=== PATIENT | female | born 1950 | race Caucasian/White ===

== ENCOUNTER → 2016-12-13 | Outpatient (CLI) | payer MEDICAID ==
--- NOTE | 2016-12-13 18:48 | DX ---
Right Wrist, Two Views History: Osteoarthritis, pain, M79.645, M79.644. Findings: First carpometacarpal joint severe joint space narrowing, endplate sclerosis, and circumfe rential osteophytes. No significant degenerative changes of the radiocarpal joint. No destructive o sseous lesions. No intercarpal degenerative changes. Impression: Severe osteoarthritis right 1st carpometacarpal joint.
--- NOTE | 2016-12-13 19:12 | DX ---
Left Second Finger, Three Views History: Arthritis pain, M79.645. Findings: Single view of the left hand and two additional views of the left 2nd finger are obtained . The left 2nd distal interphalangeal joint demonstrates moderate joint space narrowing, subchondra l sclerosis, and osteophytes consistent with moderate osteoarthritis. Similar joint space narrowing , subchondral sclerosis, and osteophytes in the 5th distal interphalangeal joint. Milder degenerati ve change is noted in the rest of the interphalangeal joints of the left hand on the AP view. Old l eft ulnar styloid fracture. Sclerotic changes of the triquetrum noted. Impression: 1. Moderate osteoarthritis left 2nd distal interphalangeal joint. 2. Moderate osteoarthritis left 5th distal interphalangeal joint.
== END ==
LOC: FIMAGING 17:36
PROVIDERS: ATTEND Family Medicine
DX: M19.042 Primary osteoarthritis, left hand (principal); M19.031 Primary osteoarthritis, right wrist

== ENCOUNTER → 2017-01-06 | Outpatient (CLI) | payer MEDICAID | LOC: BMCIMAGING 13:15 | PROVIDERS: ATTEND Internal Medicine Cardiovascular Disease | DX: R06.02 Shortness of breath (principal); R06.09 Other forms of dyspnea ==

== ENCOUNTER → 2017-02-15 | Outpatient (CLI) | payer MEDICAID | LOC: FIMAGING 15:26 | PROVIDERS: ATTEND Family Medicine | DX: M25.561 Pain in right knee (principal); M17.11 Unilateral primary osteoarthritis, right knee ==

== ENCOUNTER 2017-03-10 14:09 | Emergency (ER) | payer MEDICAID ==
--- NOTE | 2017-03-10 14:24 | EDPHY ---
H & P Stated Complaint: midsternal chest pain x 3 days, fatigue Time Seen by Provider: 03/10/17 14:15 HPI/ROS: CHIEF COMPLAINT: Chest pain HISTORY OF PRESENT ILLNESS: This is a 66-year-old female presenting to the emergency department ambulatory to exam room, complaining of a midsternal chest pain x3 days. Patient states chest pain started on Tuesday while having a stressful conversation with another individual. Patient states that Tuesday night that chest pain had worsened but over the past 2 days chest pain has decreased but increase in fatigue, has had intermittent radiation to neck but none today no shortness of breath. Patient spoke with her doctor's office through [facility] Sumit FALK, was told to come in for evaluation. Patient also reports that this could be a component of her anxiety REVIEW OF SYSTEMS: Constitutional: No fever, no chills. Fatigue Eyes: No discharge. ENT: No sore throat. Cardiovascular: Midsternal chest pain, no palpitations. Respiratory: No cough, no shortness of breath. Gastrointestinal: No abdominal pain, no vomiting. Genitourinary: No hematuria. Musculoskeletal: No back pain. Skin: No rashes. Neurological: Intermittent headache. Source: Patient, Old records - Personal History Current Tetanus/Diphtheria Vaccine: Unsure Current Tetanus Diphtheria and Acellular Pertussis (TDAP): Unsure - Medical/Surgical History Hx Asthma: No Hx Chronic Respiratory Disease: No Hx Diabetes: No Hx Cardiac Disease: Yes Hx Renal Disease: No Hx Cirrhosis: No Hx Alcoholism: No Hx HIV/AIDS: No Hx Splenectomy or Spleen Trauma: No Other PMH: OBSTRUCTIVE SLEEP APNEA- USES CPAP, APPY WITH PERITONITIS, C5-6-7- T1 FUSION, KNEE SURG, THYROID CYST REMOVAL 02/11,. pacer for dawna 09/2015 - Social History Smoking Status: Never smoked - Physical Exam Exam: General Appearance: Alert, no distress. Eyes: Pupils equal and round no pallor or injection. ENT, Mouth: Mucous membranes moist. Respiratory: There are no retractions, lungs are clear to auscultation. Cardiovascular: Regular rate and rhythm. Gastrointestinal: Abdomen is soft and nontender, no masses, bowel sounds normal. Neurological: No focal deficits ambulatory with steady gait Skin: Warm and dry, no rashes. Musculoskeletal: Neck is supple nontender. Extremities: symmetrical, full range of motion. Psychiatric: Patient is oriented X 3, there is no agitation. Constitutional: Initial Vital Signs Temperature (C) 36.4 C 03/10/17 14:13 Heart Rate 72 03/10/17 14:13 Respiratory Rate 16 03/10/17 14:13 Blood Pressure 119/74 03/10/17 14:13 O2 Sat (%) 95 03/10/17 14:13 O2 Delivery Mode Room Air Allergies/Adverse Reactions: cefazolin sodium [From Anc] Allergy (Verified 10/15/15 11:34) Swelling/neck,face,throat Penicillins Allergy (Verified 10/16/15 10:36) Rash Home Medications: Medication Instructions Recorded Minivelle 02/26/14 Nasonex 02/26/14 Progesterone 02/26/14 Aspirin 03/10/17 LORazepam [Ativan] 0.5 mg PO PRN PRN #5 tablet 03/10/17 Prozac 20 MG (*) 03/10/17 Medical Decision Making - Diagnostics EKG Interpretation: 12 lead EKG: Indication: Chest pain Impression: Sinus rhythm Imaging Results: Imaging Impressions Chest X-Ray 03/10/17 14:26 Impression: No acute abnormality or substantial change from 01/06/2017, when allowing for differences in radiographic technique. ED Course/Re-evaluation: Discussed the plan of care: EKG, chest x-ray, CBC, BMP, troponin 1610: Discussed all results with patient no acute findings. Patient states she feeling better, no chest pain no shortness of breath calm 1615: Spoke with Sumit FALK with [facility]. They will call patient tomorrow Tuesday to set up a follow-up appointment, Sumit also reported this can be a component and anxiety as the patient also stated 1630: Discussed all results with patient, follow-up with Sumit FALK. Discharge home---> stable, discussed discharge instructions Differential Diagnosis: Other differential diagnosis considered but not limited to CVA, pneumonia and STEMI - Data Points Laboratory Results: Laboratory Results 03/10/17 14:35 03/10/17 14:35 03/10/17 03/10/17 14:35 14:35 WBC 8.79 10^3/uL 10^3/uL (3.80-9.50) RBC 4.52 10^6/uL 10^6/uL (4.18-5.33) Hgb 13.9 g/dL g/dL (12.6-16.3) Hct 41.5 % % (38.0-47.0) MCV 91.8 fL fL (81.5-99.8) MCH 30.8 pg pg (27.9-34.1) MCHC 33.5 g/dL g/dL (32.4-36.7) RDW 13.6 % % (11.5-15.2) Plt Count 235 10^3/uL 10^3/uL (150-400) MPV 9.7 fL fL (8.7-11.7) Neut % (Auto) 53.2 % % (39.3-74.2) Lymph % (Auto) 35.9 % % (15.0-45.0) [place] % (Auto) 7.5 % % (4.5-13.0) Eos % (Auto) 2.4 % % (0.6-7.6) Baso % (Auto) 0.7 % % (0.3-1.7) Nucleat RBC Rel Count 0.0 % % (0.0-0.2) Absolute Neuts (auto) 4.67 10^3/uL 10^3/uL (1.70-6.50) Absolute Lymphs (auto) 3.16 10^3/uL H 10^3/uL (1.00-3.00) Absolute Monos (auto) 0.66 10^3/uL 10^3/uL (0.30-0.80) Absolute Eos (auto) 0.21 10^3/uL 10^3/uL (0.03-0.40) Absolute Basos (auto) 0.06 10^3/uL 10^3/uL (0.02-0.10) Absolute Nucleated RBC 0.00 10^3/uL 10^3/uL (0-0.01) Immature Gran % 0.3 % % (0.0-1.1) Immature Gran # 0.03 10^3/uL 10^3/uL (0.00-0.10) Sodium 139 mEq/L mEq/L (134-144) Potassium 4.2 mEq/L mEq/L (3.5-5.2) Chloride 108 mEq/L mEq/L (97-110) Carbon Dioxide 22 mEq/l mEq/l (22-31) Anion Gap 9 mEq/L mEq/L (8-16) BUN 19 mg/dL mg/dL (7-23) Creatinine 0.5 mg/dL L mg/dL (0.6-1.0) Estimated GFR > 60 Glucose 93 mg/dL mg/dL (70-100) Calcium 8.9 mg/dL mg/dL (8.5-10.4) Troponin I < 0.012 ng/mL ng/mL (0-0.034) Medications Given: Discontinued Medications Aspirin (Aspirin) 324 mg PO EDNOW ONE Stop: 03/10/17 14:35 Last Admin: 03/10/17 14:35 Dose: 324 mg Departure - Departure Disposition: Home, Routine, Self-Care Clinical Impression: Anxiety Chest pain Qualifiers: Chest pain type: unspecified Qualified Code(s): R07.9 - Chest pain, unspecified Condition: Good Instructions: Chest Pain (ED), Anxiety (ED) Additional Instructions: Discussed discharge instructions 1. I did speak with Sumit FALK with [facility] training specialist, he would call patient on Tuesday or Tuesday to set up a follow-up appoint with them 2. Also discussed with patient I would give her a few Ativan to help with anxiety, but it was important for her to have a follow-up appointment with Mariya Rivers and her PCP 3. Also discussed if at any point time chest pain reoccurs, increased pain radiating to neck and arm or shortness of breath come to the ER immediately Referrals: Matthew Kim DO [Primary Care Provider] - As per Instructions Aidan Zurita PA [Physician Track Rider] - As per Instructions Prescriptions: LORazepam [Ativan] 0.5 mg PO PRN PRN #5 tablet PRN Reason: Anxiety
--- NOTE | 2017-03-10 14:25 | CPEKG ---
Heart Rate: 55 RR Interval: 1091 P-R Interval: 164 QRSD Interval: 76 QT Interval: 424 QTC Interval: 406 P [place]: 78 QRS [place]: 59 T Wave [place]: 55 EKG Severity - NORMAL ECG - EKG Impression: SINUS RHYTHM Electronically Signed By: Milan Jimenez 11-Mar-2017 16:32:33
[2017-03-10] MEDS ORDERED: ASPIRIN 81 MG CHEWABLE TAB ONE (14:31)
[2017-03-10] MEDS ORDERED: ASPIRIN 81 MG CHEWABLE TAB PO ONE (14:34)
[2017-03-10 14:43] LABS: % IMMATURE GRANULYOCYTES 0.3 % (0.0-1.1); ABSOLUTE IMMATURE GRANULOCYTES 0.03 10^3/uL (0.00-0.10); ADD DIFF? NO; ADD MORPH? NO; ADD SCAN? NO; ATYPICAL LYMPHOCYTE FLAG 10 (0-99); FRAGMENT RBC FLAG 0 (0-99); HEMATOCRIT 41.5 % (38.0-47.0); HEMOGLOBIN 13.9 g/dL (12.6-16.3); LEFT SHIFT FLG 0 (0-99); LIPEMIA HEMOLYSIS FLAG 80 (0-99); MEAN CELL HEMOGLOBIN 30.8 pg (27.9-34.1); MEAN CELL HEMOGLOBIN CONCENTR. 33.5 g/dL (32.4-36.7); MEAN CELL VOLUME 91.8 fL (81.5-99.8); MEAN PLATELET VOLUME 9.7 fL (8.7-11.7); PLATELET CLUMPS FLAG 0 (0-99); PLATELET COUNT 235 10^3/uL (150-400); RED BLOOD CELL COUNT 4.52 10^6/uL (4.18-5.33); RED CELL DISTRIBUTION WIDTH 13.6 % (11.5-15.2)
[2017-03-10 15:01] LABS: ANION GAP 9 mEq/L (8-16); CALCIUM 8.9 mg/dL (8.5-10.4); CARBON DIOXIDE 22 mEq/l (22-31); CHLORIDE 108 mEq/L (97-110); CREATININE 0.5 mg/dL (0.6-1.0); GLOMERULAR FILTRATION RATE > 60; GLUCOSE 93 mg/dL (70-100); POTASSIUM 4.2 mEq/L (3.5-5.2); SODIUM 139 mEq/L (134-144)
[2017-03-10 15:13] LABS: TROPONIN I < 0.012 ng/mL (0-0.034)
[2017-03-10 16:57] VITALS: BP 122/60; PULSE 59; RESP 20; TEMP 98.1; O2SAT 95
== END 2017-03-10 16:53 | disposition home or self-care (01) ==
DX: F41.9 Anxiety disorder, unspecified (principal); Z79.82 Long term (current) use of aspirin

== ENCOUNTER → 2017-05-23 | Outpatient (CLI) | payer MEDICAID ==
[~2017-05-23] MED LIST: MIDAZOLAM 2 MG/2 ML VIAL ONE
== END ==
LOC: FIMAGING 14:59
PROVIDERS: ATTEND Family Medicine
DX: Z09 Encounter for follow-up examination after completed treatment for conditions other than malignant neoplasm (principal); Z98.1 Arthrodesis status
CPT/HCPCS: J2250

== ENCOUNTER → 2017-09-12 | Outpatient (CLI) | payer MEDICAID, OTHER | LOC: BRMIMAGING 14:32 | PROVIDERS: ATTEND Family Medicine | DX: Z12.31 Encounter for screening mammogram for malignant neoplasm of breast (principal) | CPT/HCPCS: G0202 ==

== ENCOUNTER → 2017-09-21 | Outpatient (CLI) | payer OTHER | LOC: BRMIMAGING 14:43 | PROVIDERS: ATTEND Family Medicine | DX: Z13.820 Encounter for screening for osteoporosis (principal); M85.80 Other specified disorders of bone density and structure, unspecified site; Z79.890 Hormone replacement therapy ==

== ENCOUNTER → 2017-09-21 | Outpatient (CLI) | payer OTHER | LOC: FIMAGING 08:45 | PROVIDERS: ATTEND Family Medicine | DX: N60.02 Solitary cyst of left breast (principal); M85.89 Other specified disorders of bone density and structure, multiple sites | CPT/HCPCS: 76641; 77080; G0206 ==

== ENCOUNTER → 2017-11-03 | Outpatient (CLI) | payer OTHER | LOC: FIMAGING 14:05 | PROVIDERS: ATTEND Internal Medicine Endocrinology, Diabetes & Metabolism | DX: E04.2 Nontoxic multinodular goiter (principal) ==

== ENCOUNTER → 2017-12-12 | Outpatient (CLI) | payer OTHER ==
[~2017-12-12] MED LIST changes: +LIDOCAINE 1% 300 MG/30 ML SDV ONE; -MIDAZOLAM 2 MG/2 ML VIAL ONE
== END ==
LOC: FIMAGING 11:31
PROVIDERS: ATTEND Internal Medicine Endocrinology, Diabetes & Metabolism
PROC: 0G9K3ZX Drainage of Thyroid Gland, Percutaneous Approach, Diagnostic (ICD-10-PCS; principal; 2017-12-12)
DX: E04.2 Nontoxic multinodular goiter (principal)

== ENCOUNTER → 2018-04-20 | Outpatient (CLI) | payer OTHER | LOC: FIMAGING 10:34 | PROVIDERS: ATTEND Family Medicine Sports Medicine | DX: M17.11 Unilateral primary osteoarthritis, right knee (principal) ==

== ENCOUNTER 2018-10-04 16:36 | Emergency (ER) | payer OTHER ==
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
[2018-10-04 17:35] LABS: PLATELET COUNT 311 10^3/uL (150-400)
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
--- NOTE | 2018-10-04 22:52 | ASMTTCLDSP ---
TLC Discharge Disposition Disposition: Answers: Discharge If Answers: Yes DISCHARGED: Patient/family given suicide hotline info & SAMHSA brochure? Disposition Notes: Notes: In consultation with [facility] ED Physician, Davi Cali MD and DEYA Wooten both concurred that pt does not appear to meet 27-65 criteria requiring psychiatric hospitalization as pt does not appear to be an imminent risk of harm to self/others/gravely disabled due to a mental illness condition. Pt was offered voluntary mental health admission yet pt declined. Pt stated a commitment or ability to keep self safe, denied thoughts of self harm or harm to others. Pt expressed desire to f/u with [facility] QUANTITATIVE ANALYST DEVELOPER Kevin Wild and has appointment on 10/17 along with her therapist Rosa Isela Henderson appointment on 10/20. Discharge Concerns/Recommendations: Notes: Pt was given local hotline information and SAMHSA brochure After an Attempt and encouraged to follow up with her mental health providers. Pt was also given emergency crisis number if needing immediate assistance. Was patient given the Answers: Not applicable Inpatient Behavioral Health Prohibited Belongings List while in the ED? Date Signed: 10/04/2018 10:52 PM Electronically Signed By:Tiffany Burr
[2018-10-04 23:55] VITALS: BP 123/74
== END 2018-10-04 23:55 | disposition home or self-care (01) ==
DX: F32.4 Major depressive disorder, single episode, in partial remission (principal); F41.9 Anxiety disorder, unspecified; F43.10 Post-traumatic stress disorder, unspecified; M79.602 Pain in left arm
CPT/HCPCS: 80305; G0480

== ENCOUNTER → 2018-10-04 | Outpatient (CLI) | payer OTHER | LOC: FIMAGING 14:34 | PROVIDERS: ATTEND Family Medicine | DX: L98.9 Disorder of the skin and subcutaneous tissue, unspecified (principal); S40.022A Contusion of left upper arm, initial encounter ==

== ENCOUNTER → 2018-10-20 | Outpatient (CLI) | payer OTHER | LOC: FIMAGING 06:53 | PROVIDERS: ATTEND Family Medicine | DX: M79.602 Pain in left arm (principal) ==

== ENCOUNTER 2018-10-23 18:21 | Inpatient (IN) | payer OTHER ==
[2018-10-23] MEDS ORDERED: ASPIRIN 81 MG CHEWABLE TAB PO ONE (18:35)
[2018-10-23] MEDS ORDERED: NS 500 ML IV ONE (18:35)
[2018-10-23 18:51] LABS: PLATELET COUNT 293 10^3/uL (150-400)
[2018-10-23 19:04] LABS: INR 0.94 (0.83-1.16); PROTIME(PATIENT) 12.8 SEC (12.0-15.0)
--- NOTE | 2018-10-23 19:34 | EDPHY ---
H & P Time Seen by Provider: 10/23/18 18:35 HPI/ROS: HPI Chest pain. 68-year-old female by private vehicle with her daughter. This patient reports that she has had chest pain for the last 4 years intermittently. She has no known history of coronary artery disease. She does have a history of Martell dysrhythmia and has a pacemaker for this. 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 She presents the emergency department stating that over the last 2 days her chest pain has been worse. She describes it again as intermittent but describes it as left anterior tightness and squeezing with radiation up into her left neck and left jaw. She reports that with worse this afternoon and this is what prompted her to come to the emergency department. ROS: Constitutional: No fever, no chills. No weakness. Eyes: No discharge. No changes in vision. ENT: No sore throat. No nasal congestion or rhinorrhea. Respiratory: No cough. No shortness of breath. Cardiac: As above, no palpitations. Gastrointestinal: No abdominal pain, no vomiting, no diarrhea. Genitourinary: No hematuria. No dysuria or increased frequency with urination. Musculoskeletal: No back pain. No neck pain. No myalgias or arthralgias. Skin: No rashes. Neurological: No headache. No focal weakness or altered sensation. Past medical history: Anxiety, appendectomy, knee surgery, as above. Primary care physician is Dr. Kim. She denies history of diabetes, hypertension, hyperlipidemia. Social history: Nonsmoker. Here with her daughter. Denies alcohol. Physical Exam: General Appearance: Alert, no distress. This patient is responding to questions appropriately and in full sentences. This patient appears well- hydrated and well-nourished. Eyes: Pupils equal and round no pallor or injection. No lid edema, erythema or injection. Respiratory: There are no retractions, lungs are clear to auscultation with good air movement bilaterally. Cardiovascular: Regular rate and rhythm. No murmur. Gastrointestinal: Abdomen is soft and nontender, no masses, bowel sounds normal. No focal tenderness at McBurney's point. No [place] sign. Neurological: Motor sensory function is grossly intact. Cranial nerves are normal. Gait is normal. Skin: Warm and dry, no rashes. Musculoskeletal: Neck is supple and nontender. Extremities are symmetrical. All joints range without pain or impingement. Psychiatric: No agitation. No depression. Database: EKG: EKG time is 6:42 p.m.; EKG shows a narrow complex normal sinus rhythm with a ventricular rate of 61. The [place], QRS, QT intervals are within normal limits. There are no ST-T wave changes indicative of ischemic or injury pattern. No evidence of right heart strain. Interpreted by me. Imaging: Chest x-ray AP portable; the cardiac mediastinal silhouette is unremarkable. No evidence of infiltrate or pneumothorax. Pacemaker left upper chest wall. Leads appear intact. No acute cardiopulmonary disease process noted. Interpreted by me. Procedures: Emergency department course: Triage vital signs reviewed and are normal. IV placed. Patient placed on a monitor. Patient given 324 mg of chewed aspirin. EKG obtained and reviewed by myself. 7:35 p.m., patient re-evaluated, resting comfortably at this time. She states that her pain has resolved. She feels comfortable at this time. Results of her emergency department workup up in discussed with her. Plan for admission to the hospitalist service for further testing in observation overnight discussed. She endorses. Hospitalist paged. 8:00 p.m., discussed case with on-call hospitalist Dr. Yuri pizarro. Case discussed in detail with him. He accepts this patient for admission to telemetry observation. The patient's remaining emergency department course under my care has been uneventful. The patient was admitted in stable condition. Differential Diagnosis: The differential diagnosis on this patient includes but is not limited to angina , anxiety reaction, esophageal spasm. This represents a partial list of diagnoses considered. These considerations are based on history, physical exam , past history, reassessment and diagnostic testing. Smoking Status: Never smoked Constitutional: Initial Vital Signs Temperature (C) 36.5 C 10/23/18 18:27 Heart Rate 68 10/23/18 18:27 Respiratory Rate 18 10/23/18 18:27 Blood Pressure 114/42 L 10/23/18 18:27 O2 Sat (%) 94 10/23/18 18:27 O2 Delivery Mode Room Air Allergies/Adverse Reactions: cefazolin sodium [From Ancef] Allergy (Verified 10/23/18 18:27) Swelling/neck,face,throat Penicillins Allergy (Verified 10/23/18 18:27) Rash Home Medications: Medication Instructions Recorded Minijason 02/26/14 Nasonex 02/26/14 Progesterone 02/26/14 Aspirin 03/10/17 LORazepam [Ativan] 0.5 mg PO PRN PRN #5 tablet 03/10/17 FLUoxetine [Prozac 20 MG (*)] 60 mg PO DAILY 10/04/18 Lisdexamfetamine Dimesylate 20 mg PO DAILY 10/04/18 [Vyvanse] Propranolol HCl [Inderal 10mg (*)] 10 mg PO Q6 PRN 10/04/18 Medical Decision Making - Diagnostics Imaging Results: Imaging Impressions Chest X-Ray 10/23/18 18:35 Impression: No acute cardiopulmonary process. - Data Points Laboratory Results: Laboratory Results 10/23/18 18:40 10/23/18 18:40 10/23/18 10/23/18 10/23/18 18:44 18:40 18:40 WBC RBC Hgb Hct MCV MCH MCHC RDW Plt Count MPV Neut % (Auto) Lymph % (Auto) Baker % (Auto) Eos % (Auto) Baso % (Auto) Nucleat RBC Rel Count Absolute Neuts (auto) Absolute Lymphs (auto) Absolute Monos (auto) Absolute Eos (auto) Absolute Basos (auto) Absolute Nucleated RBC Immature Gran % Immature Gran # PT 12.8 SEC SEC (12.0-15.0) INR 0.94 (0.83-1.16) APTT 28.2 SEC SEC (23.0-38.0) Sodium 136 mEq/L mEq/L (135-145) Potassium 3.9 mEq/L mEq/L (3.5-5.2) Chloride 104 mEq/L mEq/L (97-110) Carbon Dioxide 23 mEq/l mEq/l (22-31) Anion Gap 9 mEq/L mEq/L (6-14) BUN 21 mg/dL mg/dL (7-23) Creatinine 0.6 mg/dL mg/dL (0.6-1.0) Estimated GFR > 60 Glucose 74 mg/dL mg/dL (70-100) Calcium 8.9 mg/dL mg/dL (8.5-10.4) POC Troponin I 0.00 ng/mL ng/mL (0.00-0.08) 10/23/18 18:40 WBC 8.47 10^3/uL 10^3/uL (3.80-9.50) RBC 4.62 10^6/uL 10^6/uL (4.18-5.33) Hgb 14.3 g/dL g/dL (12.6-16.3) Hct 43.2 % % (38.0-47.0) MCV 93.5 fL fL (81.5-99.8) MCH 31.0 pg pg (27.9-34.1) MCHC 33.1 g/dL g/dL (32.4-36.7) RDW 13.4 % % (11.5-15.2) Plt Count 293 10^3/uL 10^3/uL (150-400) MPV 9.0 fL fL (8.7-11.7) Neut % (Auto) 56.8 % % (39.3-74.2) Lymph % (Auto) 29.9 % % (15.0-45.0) Baker % (Auto) 9.4 % % (4.5-13.0) Eos % (Auto) 2.8 % % (0.6-7.6) Baso % (Auto) 0.7 % % (0.3-1.7) Nucleat RBC Rel Count 0.0 % % (0.0-0.2) Absolute Neuts (auto) 4.81 10^3/uL 10^3/uL (1.70-6.50) Absolute Lymphs (auto) 2.53 10^3/uL 10^3/uL (1.00-3.00) Absolute Monos (auto) 0.80 10^3/uL 10^3/uL (0.30-0.80) Absolute Eos (auto) 0.24 10^3/uL 10^3/uL (0.03-0.40) Absolute Basos (auto) 0.06 10^3/uL 10^3/uL (0.02-0.10) Absolute Nucleated RBC 0.00 10^3/uL 10^3/uL (0-0.01) Immature Gran % 0.4 % % (0.0-1.1) Immature Gran # 0.03 10^3/uL 10^3/uL (0.00-0.10) PT INR APTT Sodium Potassium Chloride Carbon Dioxide Anion Gap BUN Creatinine Estimated GFR Glucose Calcium POC Troponin I Medications Given: Discontinued Medications Aspirin (Aspirin) 324 mg PO EDNOW ONE Stop: 10/23/18 18:36 Last Admin: 10/23/18 18:47 Dose: 324 mg Sodium Chloride (Ns) 500 mls @ 1,000 mls/hr IV EDNOW ONE PRN Reason: Protocol Stop: 10/23/18 19:04 Last Admin: 10/23/18 18:48 Dose: 500 mls Point of Care Test Results: Chemistry 10/23/18 18:44 POC Troponin I 0.00 ng/mL ng/mL (0.00-0.08) Departure - Departure Disposition: [facility] Inpatient Acute Clinical Impression: Chest pain Referrals: Matthew Kim DO [Primary Care Provider] - As per Instructions
[2018-10-23] MEDS ORDERED: DIAZEPAM 5 MG TAB PO PRN (20:32)
[2018-10-23] MEDS ORDERED: ACETAMINOPHEN 325 MG TAB PO PRN (20:32)
[2018-10-23] MEDS ORDERED: NITROGLYCERIN 0.4 MG BTL SL PRN (20:32)
[2018-10-23] MEDS ORDERED: ONDANSETRON 4 MG/2 ML VIAL IVP PRN (20:32)
[2018-10-23] MEDS ORDERED: PROPRANOLOL HCL 10 MG TAB PO PRN (20:32)
[2018-10-23] MEDS ORDERED: fentaNYL 100 MCG/2 ML INJ IVP ONE (20:54)
--- NOTE | 2018-10-23 21:29 | CPEKG ---
Test Reason : OPEN Blood Pressure : / mmHG Vent. Rate : 061 BPM Atrial Rate : 061 BPM P-R Int : 158 ms QRS Dur : 078 ms QT Int : 437 ms P-R-T Axes : 059 061 060 degrees QTc Int : 441 ms Sinus rhythm Confirmed by Drew Singh ([id number]) on 10/23/2018 9:28:55 PM Referred By: Confirmed By:Drew Singh
--- NOTE | 2018-10-23 21:57 | PDGENHP ---
History and Physical - Chief Complaint chest pain - History of Present Illness 68yo F with depression/anxiety, pacemaker for symptomatic bradycardia, paroxysmal atrial fibrillation, ZOE, cervical spine fusion here with worsening chest pain. This has actually been an ongoing issue for 4 years but it has worsened over last few days. Hurts around pacemaker pocket site. Radiates up to neck. Bilateral arm numbness. Pain hurts with arm and neck movement but is not exertional. It is pleuritic. No cough or dyspnea. She reports feeling more dizzy than usual recently but hasn't passed out. No palpitations, leg swelling, orthopnea. No prior history of CAD or CVA. She thinks she had a normal stress test in 2016. 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 In the ED, she had a negative troponin and non-ischemic ECG. She is being admitted for further cardiac evaluation. She is currently chest pain free. Case discussed with ED provider Drew Singh. History Information - Allergies/Home Medication List Allergies/Adverse Reactions: cefazolin sodium [From Anc] Allergy (Verified 10/23/18 18:27) Swelling/neck,face,throat Penicillins Allergy (Verified 10/23/18 18:27) Rash Home Medications: Estradiol [Minivelle] 1 each TD MOTH 02/26/14 [Last Taken 10/20/18] Mometasone Furoate Nasal [Nasonex] 2 sprays NASAL DAILY 02/26/14 [Last Taken ] Progesterone, Micronized [Endometrin] 1 each VG CONT 02/26/14 [Last Taken Unknown] FLUoxetine [Prozac 20 MG (*)] 80 mg PO DAILY 10/04/18 [Last Taken 10/23/18] Propranolol HCl [Inderal 10mg (*)] 10 mg PO Q6 PRN 10/04/18 [Last Taken 18:00] ARIPiprazole [Abilify 2 mg (*)] 1 mg PO DAILY 10/23/18 [Last Taken 10/23/18] Diazepam [Valium 5 MG (*)] 2.5 mg PO DAILY PRN 10/23/18 [Last Taken 10/23/18 16: 00] I have personally reviewed and updated: family history, medical history, social history, surgical history - Past Medical History Additional medical history: paroxysmal atrial fibrillation, depression ( recently came to ED 09/2018 with SI), anxiety, PTSD, POTS/dysautonomia, symptomatic bradycardia s/p pacemaker placement (09/2015), ZOE on CPAP, cervical spinal fusion - Surgical History Additional surgical history: pacemaker placement, spinal fusions, thyroid cyst removal - Family History Additional family history: no premature coronary disease, father with pacemaker for unclear reasons - Social History Smoking Status: Never smoked Alcohol Use: None Drug Use: None Additional social history: Independent in ADLs Review of Systems Review of Systems: ROS: 10pt was reviewed & negative except for what was stated in HPI & below Physical Exam Physical Exam: Temp Pulse Resp BP Pulse Ox 36.5 C 62 16 120/77 93 10/23/18 18:27 10/23/18 21:09 10/23/18 21:09 10/23/18 21:09 10/23/18 21:09 Constitutional: no apparent distress, appears nourished, not in pain Eyes: PERRL, anicteric sclera, EOMI Ears, Nose, Mouth, Throat: moist mucous membranes, hearing normal, ears appear normal, no oral mucosal ulcers Cardiovascular: regular rate and rhythym, no murmur, rub, or gallop, No JVD, No edema Respiratory: no respiratory distress, no rales or rhonchi, clear to auscultation Gastrointestinal: normoactive bowel sounds, soft, non-tender abdomen, no palpable masses Genitourinary: no bladder fullness, no bladder tenderness Skin: warm, normal color, no rashes or abrasions, no fluctuance, no induration, other (pacemaker site c/d/i with well healed scar), No mottled Musculoskeletal: full muscle strength, no muscle tenderness, normal joint ROM, no joint effusions Neurologic: AAOx3 Psychiatric: interacting appropriately, not anxious, not encephalopathic, thought process linear Lab Data & Imaging Review 10/23/18 18:40 10/23/18 18:40 WBC 8.47 10^3/uL (3.80-9.50) 10/23/18 18:40 RBC 4.62 10^6/uL (4.18-5.33) 10/23/18 18:40 Hgb 14.3 g/dL (12.6-16.3) 10/23/18 18:40 Hct 43.2 % (38.0-47.0) 10/23/18 18:40 MCV 93.5 fL (81.5-99.8) 10/23/18 18:40 MCH 31.0 pg (27.9-34.1) 10/23/18 18:40 MCHC 33.1 g/dL (32.4-36.7) 10/23/18 18:40 RDW 13.4 % (11.5-15.2) 10/23/18 18:40 Plt Count 293 10^3/uL (150-400) 10/23/18 18:40 MPV 9.0 fL (8.7-11.7) 10/23/18 18:40 Neut % (Auto) 56.8 % (39.3-74.2) 10/23/18 18:40 Lymph % (Auto) 29.9 % (15.0-45.0) 10/23/18 18:40 [place] % (Auto) 9.4 % (4.5-13.0) 10/23/18 18:40 Eos % (Auto) 2.8 % (0.6-7.6) 10/23/18 18:40 Baso % (Auto) 0.7 % (0.3-1.7) 10/23/18 18:40 Nucleat RBC Rel Count 0.0 % (0.0-0.2) 10/23/18 18:40 Absolute Neuts (auto) 4.81 10^3/uL (1.70-6.50) 10/23/18 18:40 Absolute Lymphs (auto) 2.53 10^3/uL (1.00-3.00) 10/23/18 18:40 Absolute Monos (auto) 0.80 10^3/uL (0.30-0.80) 10/23/18 18:40 Absolute Eos (auto) 0.24 10^3/uL (0.03-0.40) 10/23/18 18:40 Absolute Basos (auto) 0.06 10^3/uL (0.02-0.10) 10/23/18 18:40 Absolute Nucleated RBC 0.00 10^3/uL (0-0.01) 10/23/18 18:40 Immature Gran % 0.4 % (0.0-1.1) 10/23/18 18:40 Immature Gran # 0.03 10^3/uL (0.00-0.10) 10/23/18 18:40 PT 12.8 SEC (12.0-15.0) 10/23/18 18:40 INR 0.94 (0.83-1.16) 10/23/18 18:40 APTT 28.2 SEC (23.0-38.0) 10/23/18 18:40 Sodium 136 mEq/L (135-145) 10/23/18 18:40 Potassium 3.9 mEq/L (3.5-5.2) 10/23/18 18:40 Chloride 104 mEq/L (97-110) 10/23/18 18:40 Carbon Dioxide 23 mEq/l (22-31) 10/23/18 18:40 Anion Gap 9 mEq/L (6-14) 10/23/18 18:40 BUN 21 mg/dL (7-23) 10/23/18 18:40 Creatinine 0.6 mg/dL (0.6-1.0) 10/23/18 18:40 Estimated GFR > 60 10/23/18 18:40 Glucose 74 mg/dL (70-100) 10/23/18 18:40 Calcium 8.9 mg/dL (8.5-10.4) 10/23/18 18:40 POC Troponin I 0.00 ng/mL (0.00-0.08) 10/23/18 18:44 Urine Color YELLOW 10/23/18 19:40 Urine Appearance CLEAR 10/23/18 19:40 Urine pH 6.0 (5.0-7.5) 10/23/18 19:40 Ur Specific [place] 1.010 (1.002-1.030) 10/23/18 19:40 Urine Protein NEGATIVE (NEGATIVE) 10/23/18 19:40 Urine Ketones NEGATIVE (NEGATIVE) 10/23/18 19:40 Urine Blood NEGATIVE (NEGATIVE) 10/23/18 19:40 Urine Nitrate NEGATIVE (NEGATIVE) 10/23/18 19:40 Urine Bilirubin NEGATIVE (NEGATIVE) 10/23/18 19:40 Urine Urobilinogen NEGATIVE EU (0.2-1.0) 10/23/18 19:40 Ur Leukocyte Esterase NEGATIVE (NEGATIVE) 10/23/18 19:40 Urine Glucose NEGATIVE (NEGATIVE) 10/23/18 19:40 Visualized and Interpreted Chest x-ray results: Yes Visualized and Interpreted imaging results: Yes Interpretation: CXR: single lead pacemaker, no infiltrate or effusion, nothing acute (interp by me) Visualized and Interpreted EKG results: Yes EKG additional interpertation: ECG: sinus rhythm, no ischemic ST-T wave changes Assessment & Plan Assessment: 68yo F with depression/anxiety, pacemaker for symptomatic bradycardia, paroxysmal atrial fibrillation, ZOE, cervical spine fusion here with worsening chest pain. Plan: 1. Chest pain: Most consistent with MSK etiology. Overall my suspicion for coronary disease is low; HEART score of 2 which is low risk. I also have very little suspicion for PE. - Serial troponins/ecgs - Telemetry - At this point I do not think she warrants stress testing - Interrogate pacer in AM (query Twiddler's syndrome) 2. Paroxysmal atrial fibrillation: NSR on admit. [id number] but patient declines to be on anticoagulation for this. 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 3. Symptomatic bradycardia s/p pacemaker placement: Plan to interrogate as above. 4. ZOE: Uses CPAP at night. 5. Depression/anxiety: Recent ED visit for SI. Continue home meds. VTE ppx: SCDs Code: full Dispo: Admit under observation
[2018-10-24] MEDS ORDERED: FLUoxetine 20 MG CAP PO SCH (09:00)
[2018-10-24] MEDS ORDERED: ARIPiprazole 2 MG TAB PO SCH (09:00)
[2018-10-24] MEDS ORDERED: FLUTICASONE NASAL 120 SPRAYS/16 GM MDI EACHNARE SCH (09:00)
--- NOTE | 2018-10-24 09:49 | ASMTCMCOM ---
CM Note CM Note Notes: 68yo female admitted for CP, Afib, Martell. She has a Hx of Depression, Abxiety, PTSD, pacer, ZOE-cpap Cervical spinal fusion. MD reports CP possible MSK etiology. Patient is OBS. Lives alone in [place]. Has 2 daughters. May not have discharge needs. Date Signed: 10/24/2018 09:48 AM Electronically Signed By:Tomasa Rosario LCSW
[2018-10-24] MEDS: ASPIRIN 325 MG TAB PO SCH (10:24)
[2018-10-24] MEDS: FLUOXETINE 40MG CAPSULE PO SCH (11:15)
[2018-10-24] MEDS: ARIPiprazole 2 MG TAB PO SCH (11:15)
[2018-10-24] MEDS ORDERED: PROPRANOLOL HCL 10 MG TAB PO PRN (12:00)
[2018-10-24] MEDS ORDERED: DIAZEPAM 5 MG TAB PO PRN (13:00)
--- NOTE | 2018-10-24 17:25 | HOSPPROG ---
Hospitalist Progress Note Assessment/Plan: 68 year old female with pmh of pacer placed secondary to bradycardia, PAF, ZOE admitted for chest pain workup Plan: 1. Chest pain: low likelihood of cardiac origin. negative troponins X3, ecg with NSR, and history not suspicious. patients pain completely resolves with valium which also suggests against angina. patient says that the pain is at the site of her pacer placement and has been present for 4 years. ECG interrogated today with no events documented. pacer site and labs with no evidence of infection. Patient insists she needs to see a electroencephalogram technologist to evaluate. 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 I discussed the case with the [employer] Patent Examiner who will review her record and see her in the am. 2. Paroxysmal atrial fibrillation: NSR on admit. [id number] but patient declines to be on anticoagulation for this. She currently does not have a electroencephalogram technologist. 3. Symptomatic bradycardia s/p pacemaker placement: interrogation of pacer normal today. No bradycardia noted on tele. 4. ZOE: Uses CPAP at night. 5. Depression/anxiety: Recent ED visit for SI. Continue home meds. VTE ppx: SCDs Code: full Dispo: change to inpatient for further eval of chest pain. Subjective: patient feels pain resolves with valium. perseverates on being fired by cardiology Objective: Vital Signs Temp Pulse Resp BP Pulse Ox 36.9 C 60 20 105/58 L 94 10/24/18 16:00 10/24/18 16:00 10/24/18 16:00 10/24/18 16:00 10/24/18 16:00 10/23/18 10/24/18 10/25/18 05:59 05:59 05:59 Intake Total 850 750 Balance 850 750 PT 12.8 SEC (12.0-15.0) 10/23/18 18:40 INR 0.94 (0.83-1.16) 10/23/18 18:40 - Physical Exam Constitutional: no apparent distress, appears nourished, not in pain Eyes: PERRL, anicteric sclera, EOMI Ears, Nose, Mouth, Throat: moist mucous membranes, hearing normal, ears appear normal, no oral mucosal ulcers Cardiovascular: regular rate and rhythym, no murmur, rub, or gallop Respiratory: no respiratory distress, no rales or rhonchi, clear to auscultation Gastrointestinal: normoactive bowel sounds, soft, non-tender abdomen, no palpable masses Genitourinary: no bladder fullness, no bladder tenderness, no renal bruits Skin: no rashes or abrasions, no fluctuance, no induration Musculoskeletal: full muscle strength, no muscle tenderness, normal joint ROM Neurologic: AAOx3, sensation intact bilaterally Psychiatric: interacting appropriately, not anxious, not encephalopathic, thought process linear Lymph, Heme, Immunologic: no cervical LAD, no supraclavicular LAD ICD10 Worksheet Patient Problems: Problems Problem Status Onset Chest pain Acute
[2018-10-24] MEDS ORDERED: DIAZEPAM 5 MG TAB PO SCH (21:00)
[2018-10-25] MEDS ORDERED: ARIPiprazole 2 MG TAB PO SCH (09:00)
[2018-10-25] MEDS: FLUOXETINE 40MG CAPSULE PO SCH (09:23)
[2018-10-25] MEDS: ARIPiprazole 2 MG TAB PO SCH (09:24)
[2018-10-25] MEDS: ASPIRIN 325 MG TAB PO SCH (09:28)
--- NOTE | 2018-10-25 10:35 | PDMN ---
Medical Necessity Medical necessity: Pt meets IP criteria as of 10/24/18 per MD and MCG M-89 ( Chest pain); los > 2 mn for ongoing management of chest pain in a pt with hx of pacemaker d/t bradycardia; requiring cardiac monitoring and cardiology consultation; comorbid PAF, and ZOE
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
[2018-10-25 12:20] VITALS: BP 116/70
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
--- NOTE | 2018-10-25 19:56 | PDDCSUM ---
Discharge Summary Discharge Summary: Kristin Milner is a 68 year old female with PMH of pacer placement, hypothyroid who was admitted for evaluation of chest pain. Her troponins were negative and ECG was unremarkable. Her pacemaker was interrogated and showed nothing of concern. Her pain seemed to be relieved with valium. Cardiology was consulted who felt that her pain was not cardiac in origin and recommended she follow up with her PCP for further management. She was discharged in good condition to home.
--- NOTE | 2018-10-25 19:57 | HOSPPROG ---
Hospitalist Progress Note Assessment/Plan: 68 year old female with pmh of pacer placed secondary to bradycardia, PAF, ZOE admitted for chest pain workup Plan: 1. Chest pain: low likelihood of cardiac origin. negative troponins X3, ecg with NSR, and history not suspicious. patients pain completely resolves with valium which also suggests against angina. patient says that the pain is at the site of her pacer placement and has been present for 4 years. ECG interrogated today with no events documented. pacer site and labs with no evidence of infection. Patient insists she needs to see a application integration specialist to evaluate. 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 I discussed the case with cardiology who felt pain was not cardiac in origin. 2. Paroxysmal atrial fibrillation: NSR on admit. [id number] but patient declines to be on anticoagulation for this. She currently does not have a application integration specialist. 3. Symptomatic bradycardia s/p pacemaker placement: interrogation of pacer was normal 4. ZOE: Uses CPAP at night. 5. Depression/anxiety: Recent ED visit for SI. Continue home meds. VTE ppx: SCDs Code: full Dispo: discharge today Subjective: pain better with valium. No further concerns. Objective: Vital Signs Temp Pulse Resp BP Pulse Ox 36.4 C 69 18 116/70 94 10/25/18 08:00 10/25/18 12:00 10/25/18 12:00 10/25/18 12:00 10/25/18 12:00 10/24/18 10/25/18 10/26/18 05:59 05:59 05:59 Intake Total 590 Balance 590 PT 12.8 SEC (12.0-15.0) 10/23/18 18:40 INR 0.94 (0.83-1.16) 10/23/18 18:40 - Physical Exam Constitutional: no apparent distress, appears nourished, not in pain Eyes: PERRL, anicteric sclera, EOMI Ears, Nose, Mouth, Throat: moist mucous membranes, hearing normal, ears appear normal, no oral mucosal ulcers Cardiovascular: regular rate and rhythym, no murmur, rub, or gallop Respiratory: no respiratory distress, no rales or rhonchi, clear to auscultation Gastrointestinal: normoactive bowel sounds, soft, non-tender abdomen, no palpable masses Genitourinary: no bladder fullness, no bladder tenderness, no renal bruits Skin: no rashes or abrasions, no fluctuance, no induration Musculoskeletal: full muscle strength, no muscle tenderness, normal joint ROM Neurologic: AAOx3, sensation intact bilaterally Psychiatric: interacting appropriately, not anxious, not encephalopathic, thought process linear Lymph, Heme, Immunologic: no cervical LAD, no supraclavicular LAD ICD10 Worksheet Patient Problems: Problems Problem Status Onset Chest pain Acute
[2018-10-26] MEDS ORDERED: ESTRADIOL VIVELLE 0.025 MG PATCH TD SCH (06:29)
== END 2018-10-25 13:10 | disposition home or self-care (01) | DRG 313 ==
LOC: EEVIPCON 18:21 → F2W 22:04 → OBSVTOIN 10-24 17:26
PROVIDERS: ADMIT Internal Medicine; ATTEND Internal Medicine
DX: R07.89 Other chest pain (principal); Z95.0 Presence of cardiac pacemaker; E03.9 Hypothyroidism, unspecified; F32.9 Major depressive disorder, single episode, unspecified; F41.9 Anxiety disorder, unspecified; I48.0 Paroxysmal atrial fibrillation; G47.33 Obstructive sleep apnea (adult) (pediatric); Z98.1 Arthrodesis status
CPT/HCPCS: 84484-ER; G0378; J3010

== ENCOUNTER → 2019-02-22 | Outpatient (CLI) | payer OTHER | LOC: FIMAGING 12:24 | PROVIDERS: ATTEND Family Medicine | DX: M25.572 Pain in left ankle and joints of left foot (principal); M25.512 Pain in left shoulder; G89.29 Other chronic pain; M76.822 Posterior tibial tendinitis, left leg; S93.492A Sprain of other ligament of left ankle, initial encounter; M72.2 Plantar fascial fibromatosis; R93.6 Abnormal findings on diagnostic imaging of limbs; M75.42 Impingement syndrome of left shoulder; M75.52 Bursitis of left shoulder; M75.22 Bicipital tendinitis, left shoulder; M75.102 Unspecified rotator cuff tear or rupture of left shoulder, not specified as traumatic ==

== ENCOUNTER 2019-03-13 05:40 | Day surgery (SDC) | payer OTHER ==
--- NOTE | 2019-03-12 16:50 | SOAPPROG ---
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 MAIN OFFICE Provider REAGAN MATSON M.D. 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 details Chief Complaint None recorded. Vitals None recorded. Allergies Allergies not reviewed (last reviewed 09/15/2015) LASIX: Nausea PENICILLINS: Rash Medications Reviewed Medications estradiol 0.0375 mg/24 hr semiweekly transdermal patch 11/20/18 filled [facility] lamoTRIgine 25 mg tablet 02/05/19 filled [facility] lithium carbonate 300 mg capsule 02/05/19 filled [employer] proGESTerone 09/16/15 entered Ann Javier propranolol 10 mg tablet Take 2 tablet(s) 3 times a day by oral route. 09/16/15 entered Ann Long Vyvanse 20 mg capsule 09/15/18 filled surescripts Xopenex 09/16/15 entered Ann Long Vaccines None recorded. 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 Past Pregnancies None recorded. Past Medical History Past Medical History not reviewed (last reviewed 09/15/2015) No Medical History: Y Anxiety Disorder: Y Arthritis: Y Asthma: Y Depression: Y Heart Problems: Y Hepatitis: Y Lung Disease: Y Osteopenia: Y Thyroid Problems: Y Urinary Tract Infection: Y Documents for Discussion Discussed the following documents: Patient Portal - Health History-Female - 02/28/19 Clinical Document - 02/28/19 Notes - New Patient Registration - [place] Screening None recorded. HPI This is a very pleasant 68 year old RHD female with: - pacemaker - s/p right shoulder arthroscopy with SAD, DCE, RCR and biceps tenodesis with Dr. Luca Xiao -03/20/18 -- Shingrix vaccination in the left upper arm -05/17 -- persistent bruise surrounding the injection site -10/20/18 -- MRI of the left arm -- area of abnormality within the subcutaneous fat of the lateral mid arm which could reflect sequela of a direct contusion but no hematoma seen -02/22/19 -- left shoulder MRI (BC) -- a partial thickness rotator cuff tear with impingement anatomy She presents today for her first orthopedic surgery evaluation. ROS ROS as noted in the HPI Physical Exam Patient is a 68-year-old female. Bilateral shoulder examination Inspection/palpation: Right: Normal resting posture. Left: Normal resting posture Shoulder ROM (R / L / Normal) Forward flexion: 170 / 170 with pain at 90 / 170 Abduction: 160 / 160 with pain at 150 / 160 Extension: 40 / 40 / 40 Shoulder strength (R / L / Normal) Deltoid : 5/ 5 / 5 Biceps: 5/ 5 / 5 Shoulder sensory (R / L / Normal) Axillary: + / + / + Shoulder tests Stability tests OBriens: - / + / - Apprehension: - / - / - Relocation: - / - / - Jerk: - / - / - Rotator cuff tests Empty can: - / + / - Belly press: - / - / - Lift off : - / - / - Impingement tests Harpreet: - / + / - Neer: - / - / - Cross-arm adduction: - / - / - Biceps test Speeds: - / + / - Yergason supination: - / - / - Assessment / Plan This is a very pleasant 68 year old RHD female with: - pacemaker - s/p right shoulder arthroscopy with SAD, DCE, RCR and biceps tenodesis with Dr. Luca Xiao -03/20/18 -- Shingrix vaccination in the left upper arm -05/17 -- persistent bruise surrounding the injection site -10/20/18 -- MRI of the left arm -- area of abnormality within the subcutaneous fat of the lateral mid arm which could reflect sequela of a direct contusion but no hematoma seen -02/22/19 -- left shoulder MRI (BC) -- a partial thickness rotator cuff tear with impingement anatomy For the left shoulder: - I have discussed with the patient the risks, benefits, alternatives and complications associated with both non-operative (specifically, observation, NSAIDs, PT, injection) and operative (specifically, left shoulder arthroscopy with SAD, DCE, labral debridement, LHB tenotomy and/or tenodesis and rotator cuff debridement and/or repair) forms of treatment - The patient fully understands the risks, benefits, alternatives, and complications associated with these forms of treatment and wishes to proceed with surgery, as outlined above - She has signed the informed consent form for surgery and surgery will be scheduled for the near future. 1. Shoulder pain - Left M25.512: Pain in left shoulder 2. Partial thickness rotator cuff tear - Left M75.112: Incomplete rotator cuff tear or rupture of left shoulder, not specified as traumatic 3. Impingement syndrome of left shoulder region M75.42: Impingement syndrome of left shoulder Encounter signed-off by Reagan Matson M.D., ICD10 Worksheet Patient Problems: Problems Problem Status Onset Chest pain Acute
[2019-03-13] MEDS ORDERED: LR 1,000 ML IV ONE (06:36)
[2019-03-13] MEDS ORDERED: MIDAZOLAM 2 MG/2 ML VIAL IVP ONE (06:43)
[2019-03-13] MEDS ORDERED: CLINDAMYCIN 900 MG/DEXTROSE 50 ML IV ONE (06:44)
[2019-03-13] MEDS ORDERED: LIDOCAINE 1% 300 MG/30 ML SDV ONE ×2 (06:47→07:21)
[2019-03-13] MEDS ORDERED: BUPIVACAINE 0.5% 30 ML SDV ONE (06:48)
[2019-03-13] MEDS ORDERED: EPINEPHrine 30 MG/30 ML MDV (0.1 MG/0.1 ML) ONE (06:48)
--- NOTE | 2019-03-13 06:51 | PDHPUP ---
History & Physical Update H&P update statement: This history and physical update is based on an assessment of the patient which was completed after admission or registration (within 24 hours), but prior to the surgery/procedure. H&P update: H&P reviewed & patient examined
[2019-03-13] MEDS ORDERED: DEXMEDETOMIDINE HCL 400 MCG in NS 100 ML IV SCH (07:00)
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
[2019-03-13] MEDS ORDERED: PROPOFOL 200 MG/20 ML VIAL ONE (07:07)
[2019-03-13] MEDS ORDERED: fentaNYL 100 MCG/2 ML INJ ONE ×2 (07:07→09:04)
[2019-03-13] MEDS ORDERED: ROPIVACAINE HCL 150 MG/30 ML INJ ONE (07:10)
[2019-03-13] MEDS ORDERED: ROCURONIUM 50 MG/5 ML VIAL ONE (07:11)
[2019-03-13] MEDS ORDERED: DEXAMETHASONE 4 MG/ML VIAL ONE (07:42)
[2019-03-13] MEDS ORDERED: ePHEDrine SULFATE 25 MG/5 ML SYR ONE (07:53)
[2019-03-13] MEDS ORDERED: LR 500 ML IV PRN (08:54)
[2019-03-13] MEDS ORDERED: NALOXONE HCL 0.4 MG/ML INJ IVP PRN (08:54)
[2019-03-13] MEDS ORDERED: ACETAMINOPHEN 500 MG TAB PO PRN (08:54)
[2019-03-13] MEDS ORDERED: ONDANSETRON 4 MG/2 ML VIAL IVP PRN (08:54)
[2019-03-13] MEDS ORDERED: METOCLOPRAMIDE 10 MG/2 ML VIAL IVP PRN (08:54)
[2019-03-13] MEDS ORDERED: ALBUTEROL 3 ML DEYVIAL IH PRN (08:54)
[2019-03-13] MEDS ORDERED: DEXAMETHASONE 4 MG/ML VIAL IVP PRN (08:54)
[2019-03-13] MEDS ORDERED: oxyCODONE IR 5 MG TAB PO PRN (08:54)
[2019-03-13] MEDS ORDERED: fentaNYL 100 MCG/2 ML INJ IVP PRN (08:54)
[2019-03-13] MEDS ORDERED: PROMETHAZINE HCL 25 MG/ML INJ IVP PRN (08:54)
[2019-03-13] MEDS ORDERED: DIAZEPAM 10 MG/2 ML SYR IVP PRN (08:54)
[2019-03-13] MEDS ORDERED: HYDROCODONE/APAP 5/325 TAB PO PRN (08:54)
[2019-03-13] MEDS ORDERED: HYDROmorphONE/DILAUDID 1 MG/ML INJ IVP PRN (08:54)
[2019-03-13] MEDS ORDERED: MEPERIDINE 25 MG/0.5 ML AMP IVP PRN (08:54)
[2019-03-13] MEDS ORDERED: KETOROLAC 30 MG/1 ML SDV ONE (08:55)
[2019-03-13] MEDS ORDERED: ONDANSETRON 4 MG/2 ML VIAL ONE (08:55)
--- NOTE | 2019-03-13 09:28 | POSTANESTH ---
Post Anesthetic Evaluation Cardiovascular Status: Normal, Stable Respiratory Status: Normal, Stable Level of Consciousness/Mental Status: Can Participate in Eval Pain Control: Adequate, Prn Tx Ordered Nausea/Vomiting Control: Adequate, Prn Tx Ordered Complications Possibly Related to Anesthesia: None Noted
[2019-03-13] MEDS ORDERED: oxyCODONE IR 5 MG TAB ONE (10:10)
[2019-03-13 12:44] VITALS: BP 87/57
--- NOTE | 2019-03-14 07:21 | GOP ---
[f rep st] OPERATIVE REPORT DATE OF OPERATION: 03/13/2019 SURGEON: Reagan Willett MD PREOPERATIVE DIAGNOSIS: Left shoulder subacromial impingement, acromioclavicular joint arthritis, la bral tear, long head of biceps tendinitis, partial-thickness rotator cuff tear. POSTOPERATIVE DIAGNOSIS: left shoulder arthroscopy with subacromial decompression, distal clavicle excision, labral debridement, long headed biceps tenotomy, and rotator cuff debridement. _ PACS. PROCEDURE PERFORMED: FINDINGS: ESTIMATED BLOOD LOSS: 2 cc. DESCRIPTION OF PROCEDURE: The patient is a very pleasant 68-year-old female who underwent a left pam ulder arthroscopy; decompression of distal clavicle excision, labral debridement, long head of biceps tenotomy, and rotator cuff debridement. COMPLICATIONS: None. IMPLANTS: None. /[id number]/MODL
== END 2019-03-13 12:45 | disposition home or self-care (01) ==
LOC: FSGY 05:40
PROVIDERS: ATTEND Orthopaedic Surgery Hand Surgery
DX: M25.812 Other specified joint disorders, left shoulder (principal); M75.112 Incomplete rotator cuff tear or rupture of left shoulder, not specified as traumatic; Z95.0 Presence of cardiac pacemaker; G47.33 Obstructive sleep apnea (adult) (pediatric); E03.9 Hypothyroidism, unspecified; F32.9 Major depressive disorder, single episode, unspecified; F41.9 Anxiety disorder, unspecified
CPT/HCPCS: J0171; J1100; J1885; J2250; J2405; J2704; J2795; J3010

== ENCOUNTER → 2019-04-25 | Outpatient (CLI) | payer OTHER | LOC: FIMAGING 12:33 ==